=== PATIENT | male | born 1970 | race Caucasian/White ===

== ENCOUNTER 2023-09-04 10:01 | Emergency (ER) | payer OTHER ==
[~2023-09-04] VITALS: Ht 170.2 cm; Wt 60.5 kg
[2023-09-04 10:18] VITALS: BP 150/90; PULSE 57; RESP 16; TEMP 98.6; O2SAT 98
[2023-09-04] MEDS: ceFAZolin/D5W- 1GM premix 50 ML IV STA (12:09)
[2023-09-04] MEDS: TETanus/Pertussis (Acell)/Diphther VAC/PF (Tdap-Adult) 0.5ml syringe IMVAC ONE (12:12)
[2023-09-04] MEDS: LIDOcaine 1% W/epiNEPHrine 1:100,000 20ml vial SQ ONE (12:16)
[2023-09-04] MEDS ORDERED: CEPH-585 PO (12:47)
== END 2023-09-04 13:22 | disposition home or self-care (01) ==
LOC: ER 10:02
DX: S91.111A Laceration without foreign body of right great toe without damage to nail, initial encounter (principal); Z88.0 Allergy status to penicillin; W20.8XXA Other cause of strike by thrown, projected or falling object, initial encounter; Y93.89 Activity, other specified; Y92.89 Other specified places as the place of occurrence of the external cause; Y99.8 Other external cause status
CPT/HCPCS: 12001; 73630; 90471; 90715; 96365; 99284; A6223; J0690; J7030; L4360; A6258; A6449